=== PATIENT | female | born 1960 | race African-American/Black ===

== ENCOUNTER 2016-06-14 23:53 | Emergency (ER) | payer BC, OTHER ==
[~2016-06-14] VITALS: Ht 170.2 cm; Wt 68.0 kg
[2016-06-15] MEDS ORDERED: COZAAR 50 MG TA50 M2 PO (00:12)
[2016-06-15 00:47] VITALS: BP 161/108
[2016-06-15] MEDS ORDERED: AUGMENTIN 875-1 EACH PO (01:13)
== END 2016-06-15 01:40 | disposition home or self-care (01) ==
LOC: ER 23:53
DX: J32.8 Other chronic sinusitis (principal); R51 Headache; I10 Essential (primary) hypertension